=== PATIENT | male | born 1940 | race Caucasian/White ===

== ENCOUNTER 2016-12-11 19:12 | Inpatient (IN) | payer OTHER ==
[~2016-12-11] VITALS: Ht 172.7 cm; Wt 123.0 kg
[2016-12-11 19:41] LABS: BASOPHIL 0.5 % (0-2); EOSINOPHIL 0.8 % (0-7); HGB 11.2 g/dl (13.2-18.0); LYMPHOCYTE 19.1 % (15-48); MCH 36.1 pg (25.0-31.0); MCHC 33.9 g/dL (32.0-36.0); MCV 106.5 fL (78.0-100.0); MONOCYTE 19.7 % (0-12); NEUTROPHIL 59.9 % (41-80); PLT 185 K/uL (150-400); WBC 5.9 K/uL (4.0-10.5)
[2016-12-11 19:52] LABS: INR 1.17 (0.9-1.2)
[2016-12-11 19:53] LABS: PTT 43.7 SECONDS (24.3-32.1)
[2016-12-11 19:54] LABS: D-DIMER 1.55 ug/mLFEU (0.00-0.41)
[2016-12-11 19:56] LABS: LACTIC ACID 2.3 mmol/L (0.5-2.2)
[2016-12-11 19:59] LABS: ALBUMIN 3.4 g/dL (3.4-4.8); BILIRUBIN - TOTAL 0.5 mg/dL (0.1-1.0); CREATININE 0.7 mg/dL (0.7-1.2); GLOBULIN (CALCULATION) 3.9 g/dL (2.2-4.2); TOTAL PROTEIN 7.3 g/dL (6.4-8.3)
[2016-12-11 21:08] LABS: BILIRUBIN NEGATIVE (NEGATIVE); BLOOD 1+ Ery/uL (NEGATIVE); CLARITY HAZY (CLEAR); COLOR YELLOW (YELLOW); GLUCOSE (U) NORMAL (NORMAL); KETONE (U) 1+ (SMALL) mg/dL (NEGATIVE); LEUKOCYTES NEGATIVE Leu/uL (NEGATIVE); NITRITE NEGATIVE (NEGATIVE); PROTEIN 1+ mg/dL (NEGATIVE); SPECIFIC GRAVITY 1.025 (1.001-1.030)
[2016-12-11 21:19] LABS: MUCOUS MODERATE
[2016-12-12 11:50] LABS: CKMB 2.74 ng/mL (0.97-4.94); MYOGLOBIN 28 ng/mL (26-65); TROPONIN T < 0.010 ng/mL
[2016-12-13 05:19] LABS: HCT 29.1 % (42.0-52.0); HGB 9.6 g/dl (13.2-18.0); MCH 36.2 pg (25.0-31.0); MCV 109.8 fL (78.0-100.0); RBC 2.65 M/uL (4.70-6.00); RDW 15.3 % (11.5-14.0); WBC 7.1 K/uL (4.0-10.5)
[2016-12-13 05:48] LABS: ALBUMIN 2.9 g/dL (3.4-4.8); BILIRUBIN - TOTAL 0.2 mg/dL (0.1-1.0); CREATININE 0.6 mg/dL (0.7-1.2); GLOBULIN (CALCULATION) 2.7 g/dL (2.2-4.2); POTASSIUM 4.1 mmol/L (3.5-5.1); TOTAL PROTEIN 5.6 g/dL (6.4-8.3)
[2016-12-14 06:04] LABS: HCT 30.2 % (42.0-52.0); HGB 9.6 g/dl (13.2-18.0); MCH 35.2 pg (25.0-31.0); MCHC 31.8 g/dL (32.0-36.0); MCV 110.6 fL (78.0-100.0); RBC 2.73 M/uL (4.70-6.00); WBC 7.5 K/uL (4.0-10.5)
[2016-12-14 06:30] LABS: ALBUMIN 2.9 g/dL (3.4-4.8); BILIRUBIN - TOTAL 0.2 mg/dL (0.1-1.0); CREATININE 0.7 mg/dL (0.7-1.2); GLOBULIN (CALCULATION) 2.6 g/dL (2.2-4.2); POTASSIUM 4.3 mmol/L (3.5-5.1); TOTAL PROTEIN 5.5 g/dL (6.4-8.3)
[2016-12-15 05:58] LABS: HCT 30.2 % (42.0-52.0); HGB 9.6 g/dl (13.2-18.0); MCH 34.9 pg (25.0-31.0); MCHC 31.8 g/dL (32.0-36.0); MCV 109.8 fL (78.0-100.0); MPV 8.8 fL (6.0-9.5); RBC 2.75 M/uL (4.70-6.00); WBC 5.7 K/uL (4.0-10.5)
[2016-12-15 06:21] LABS: ALBUMIN 2.7 g/dL (3.4-4.8); BILIRUBIN - TOTAL 0.2 mg/dL (0.1-1.0); CREATININE 0.7 mg/dL (0.7-1.2); GLOBULIN (CALCULATION) 2.9 g/dL (2.2-4.2); POTASSIUM 4.3 mmol/L (3.5-5.1); TOTAL PROTEIN 5.6 g/dL (6.4-8.3)
[2016-12-15 14:35] LABS: RETICULOCYTE COUNT 1.2 % (1.0-2.0)
[2016-12-15 14:50] LABS: FT4 (FREE T4) 1.22 ng/dL (0.93-1.70); TSH (THYROID STIM HORMONE) 1.34 uIU/mL (0.270-4.200)
[2016-12-15 14:58] LABS: FOLIC ACID (SERUM) 16.1 ng/mL (5.6-45.8)
== END 2016-12-15 17:04 | DRG 871 ==
LOC: FER 19:12 → FMS 23:28
PROVIDERS: Emergency Medicine Emergency Medical Services; Hospitalist; Internal Medicine; ADMIT Internal Medicine
DX: A41.9 Sepsis, unspecified organism (principal); J69.0 Pneumonitis due to inhalation of food and vomit; C78.00 Secondary malignant neoplasm of unspecified lung; C79.51 Secondary malignant neoplasm of bone; C50.922 Malignant neoplasm of unspecified site of left male breast; D63.8 Anemia in other chronic diseases classified elsewhere; N39.0 Urinary tract infection, site not specified; I10 Essential (primary) hypertension; E11.9 Type 2 diabetes mellitus without complications; I25.10 Atherosclerotic heart disease of native coronary artery without angina pectoris; E78.5 Hyperlipidemia, unspecified; E66.9 Obesity, unspecified; M19.90 Unspecified osteoarthritis, unspecified site; G47.33 Obstructive sleep apnea (adult) (pediatric); B96.89 Other specified bacterial agents as the cause of diseases classified elsewhere; Z66 Do not resuscitate; Z79.82 Long term (current) use of aspirin; Z79.899 Other long term (current) drug therapy; Z95.1 Presence of aortocoronary bypass graft; Z91.013 Allergy to seafood; Z91.041 Radiographic dye allergy status
CPT/HCPCS: 36415; 36600; 71010; 71020; 71275; 80048; 80053; 80202; 81001; 82550; 82553; 82607; 82728; 82746; 82803; 82962; 83540; 83550; 83605; 83874; 84145; 84439; 84443; 84480; 84484; 85025; 85044; 85379; 85610; 85651; 85730; 87040; 87076; 87088; 87186; 87449; 93005; 94010; 94640; 94760; 97110; 97116; 97163; 97166; 97530-GP; 97535; J0456; J1815; J1956; J2543; J2930; J3370; Q9967

== ENCOUNTER 2016-12-15 17:04 | Inpatient (IN) | payer OTHER ==
[~2016-12-15] VITALS: Ht 172.7 cm; Wt 117.6 kg
--- NOTE | 2016-12-16 09:32 | NUR ---
WALKING WITH PT DOWN HALLWAY SPOT CHECK 91% ON ROOM AIR
--- NOTE | 2016-12-16 15:12 | NUR ---
MD NOTIFIED THAT THERAPY STATES INCREASED CONFUSION AND CUEING NEEDED WITH PARTICIPATION WITH THERAPY. ABG ORDERED, CT OF HEAD WITHOUT CONTRAST, OMNICEF STARTED AND LEVAQUIN D/C'D. DIET CHAGNED TO DENTAL SOFT PER RECOMMENDATION OF ST
--- NOTE | 2016-12-20 12:36 | NUR ---
MET WITH PT. SPOUSE AND SON FOR CARE TEAM MTG. DISCUSSED WITH FAMILY REGARDING PT. DECLINE IN PHYSCIAL ABILITY THIS DATE. SPOUSE AND SON STATED THAT THIS WAS A NORM FOR THE PT. THAT HE WOULD HAVE DAYS WHERE HE WAS NOT ABLE TO PRATICPATE IN HELPING HIMSELF. PT. HAS A ROLLING WALKER. FAMILY WOULD LIKE A WHEELCHAIR. 06/08. FAMILY WOULD LIKE [facility] FOR PT/OT/ST AND NURSING ASSESSMENT. IF PT. IS STABLE THE DISCHARGE DATE IS SET FOR 12/23/16.
[2016-12-20 14:23] LABS: BASOPHIL 0.2 % (0-2); EOSINOPHIL 0.6 % (0-7); HCT 35.2 % (42.0-52.0); HGB 11.6 g/dl (13.2-18.0); LYMPHOCYTE 9.7 % (15-48); MCH 36.3 pg (25.0-31.0); MONOCYTE 17.5 % (0-12); MPV 8.8 fL (6.0-9.5); PLT 229 K/uL (150-400); RDW 15.4 % (11.5-14.0); WBC 10.8 K/uL (4.0-10.5)
[2016-12-20 14:57] LABS: ALBUMIN 3.1 g/dL (3.4-4.8); BILIRUBIN - TOTAL 0.6 mg/dL (0.1-1.0); CREATININE 1.2 mg/dL (0.7-1.2); GLOBULIN (CALCULATION) 3.9 g/dL (2.2-4.2); MAGNESIUM 2.24 mg/dL (1.40-2.10); POTASSIUM 5.7 mmol/L (3.5-5.1)
--- NOTE | 2016-12-20 18:11 | NUR ---
1345 THERApy was fixing to work with res'd when became UNRESPOSIVIE, WOULD WAKE UP AND THEN LOOK UNRERSPONSIVIE, 91/46, HR-71. THEN B/P /70 CALLED RAPID RESPONSE, SATS DOWN TO 78%, INCREASE OXYGEN TO 3L AND SATS BOUNCED BETWEEN 88-92%, RES'D WELLS IN COLOR, RESPONDED AT TIMES, TEAM ARRIVED AND #20 PLACED ON RT FOREARM AND NARCAN 0.4MG IV GIVEN AT 1351 AND AGAIN AT 1400, STARTED TO RESPOND AND BE MORE ALERT, LABS DRAWN, EKG DONE, ABG DONE, SPOUSE WAS PRESENT AT THIS TIME AND NOT CONCERN HAS DONE THIS SEVERAL TIMES AT HOME BUT NOT FOR THIS LONG, ORDERS REC'D AND CONT TO MONITOR RES'D, 1400 125/59 HR 93 SAT 97%, 1415 115/65 HR-93 SAT 99% ON 3L OF OXYGEN 1645 WAS TAKING RES'D ACCUCHECK-201 AND WAS GIVING SUPPER MEDS, GAME METFORMIN AND RES'D WENT UNRESPONSIVIE, CALLED RONDA ALCANTAR RN/ACNP TO COME LOOK AT RES'D, 109/77 HR 209, 88% AT 3L PER NC, AND VERY WELLS IN COLOR, FAMILY PRESENT, SENDING TO [facility]CU, REPORT CALLED TO MANPREET ORDERS WRITTEN PER DR PADGETT
== END 2016-12-20 17:07 | disposition other institution (70) | DRG 871 ==
LOC: FSNU 17:04
PROVIDERS: Internal Medicine; ADMIT Internal Medicine
DX: A41.9 Sepsis, unspecified organism (principal); G93.41 Metabolic encephalopathy; C78.00 Secondary malignant neoplasm of unspecified lung; C79.51 Secondary malignant neoplasm of bone; C50.922 Malignant neoplasm of unspecified site of left male breast; D63.8 Anemia in other chronic diseases classified elsewhere; I10 Essential (primary) hypertension; N39.0 Urinary tract infection, site not specified; E11.9 Type 2 diabetes mellitus without complications; I25.10 Atherosclerotic heart disease of native coronary artery without angina pectoris; E78.5 Hyperlipidemia, unspecified; E66.9 Obesity, unspecified; M19.90 Unspecified osteoarthritis, unspecified site; G47.33 Obstructive sleep apnea (adult) (pediatric); B96.89 Other specified bacterial agents as the cause of diseases classified elsewhere; Z66 Do not resuscitate; Z79.82 Long term (current) use of aspirin; Z79.899 Other long term (current) drug therapy; Z95.1 Presence of aortocoronary bypass graft; Z91.013 Allergy to seafood; Z91.041 Radiographic dye allergy status; R65.10 Systemic inflammatory response syndrome (SIRS) of non-infectious origin without acute organ dysfunction
CPT/HCPCS: 36415; 36600; 74230; 80053; 82803; 82962; 83735; 84484; 85025; 92523; 92526; 92611; 93005; 97110; 97116; 97163; 97167; 97530; 97530-GP; 97535; J1815; J1956; J2310